=== PATIENT | female | born 1985 | race Two or more races ===

== ENCOUNTER 2019-02-27 10:28 | Emergency (ER) | payer MEDICAID ==
[~2019-02-27] VITALS: Ht 165.1 cm; Wt 99.8 kg
--- NOTE | 2019-02-27 10:50 | PHYS DOC ---
Adult General Chief Complaint Chief Complaint: ABDOMINAL PAIN HPI HPI 33-year-old female presents after fall. The patient was walking down stairs at home yesterday when her foot slipped and she fell onto her left flank. She currently has pain in the left trapezius distribution as well as her left lower ribs. She just wants to make sure she doesn't have a serious injury. She was not knocked unconscious did not hit her head. He is able to ambulate without difficulty. She denies numbness or tingling. Review of Systems Review of Systems Constitutional: Denies fever or chills [] Eyes: Denies change in visual acuity, redness, or eye pain [] HENT: Denies nasal congestion or sore throat [] Respiratory: Denies cough or shortness of breath [] Cardiovascular: No additional information not addressed in HPI [] GI: Denies abdominal pain, nausea, vomiting, bloody stools or diarrhea [] : Denies dysuria or hematuria [] Musculoskeletal: Left rib pain, upper thoracic pain[] Integument: Denies rash or skin lesions [] Neurologic: Denies headache, focal weakness or sensory changes [] Endocrine: Denies polyuria or polydipsia [] All other systems were reviewed and found to be within normal limits, except as documented in this note. Allergies Allergies Allergies Coded Allergies Type Severity Reaction Last Updated Verified No Known Drug Allergies 02/27/19 No Physical Exam Physical Exam Constitutional: Well developed, well nourished, no acute distress, non-toxic appearance. [] HENT: Normocephalic, atraumatic, bilateral external ears normal, oropharynx moist, no oral exudates, nose normal. [] Eyes: PERRLA, EOMI, conjunctiva normal, no discharge. [] Neck: Normal range of motion, no tenderness, supple, no stridor. [] Cardiovascular:Heart rate regular rhythm, no murmur [] Lungs & Thorax: Bilateral breath sounds clear to auscultation. Bruising over left lower ribs, tenderness in the same location [] Abdomen: Bowel sounds normal, soft, no tenderness, no masses, no pulsatile masses. [] Skin: Warm, dry, no erythema, no rash. [] Back: Tenderness over the left trapezius distribution, no obvious deformity, no bony point tenderness[] Extremities: No tenderness, no cyanosis, no clubbing, ROM intact, no edema. [] Neurologic: Alert and oriented X 3, normal motor function, normal sensory function, no focal deficits noted. [] Psychologic: Affect normal, judgement normal, mood normal. [] EKG EKG [] Radiology/Procedures Radiology/Procedures [] Impressions: RIBS LEFT AND PA CHEST History: Fall, left rib pain and bruising Comparison: None. Findings: Single view of the chest and 3 additional views of the left ribs are submitted. There is no pneumothorax, pleural fluid, lobar infiltrate. Heart size is within normal limits. There is likely a nondisplaced left anterolateral sixth rib fracture. Impression: 1. There is likely nondisplaced left anterolateral sixth rib fracture. There is no pneumothorax or pleural fluid. Electronically signed by: Alina Ruelas MD (02/27/2019 11:09 AM) [facility] DICTATED AND SIGNED BY: ALINA RUELAS MD DATE: 02/27/19 1109 CC: ESTHER HURD DO; PCP,NO ~ Course & Med Decision Making Course & Med Decision Making Pertinent Labs and Imaging studies reviewed. (See chart for details) [] Dragon Disclaimer Dragon Disclaimer This electronic medical record was generated, in whole or in part, using a voice recognition dictation system. Departure Departure: Impression: Primary Impression: Closed rib fracture Disposition: 01 HOME, SELF-CARE Condition: STABLE Referrals: PCP,NO (PCP) Patient Instructions: Rib Fracture, [id number] Scripts Hydrocodone Bit/Acetaminophen (NORCO 5-325 TABLET) 1 Each Tablet 1 TAB PO PRN Q6HRS PRN for PAIN, #14 TAB 0 Refills Prov: ESTHER HURD DO 02/27/19 Problem Qualifiers Primary Impression: Closed rib fracture Encounter type: initial encounter Rib fracture type: single rib Laterality: left Qualified Codes: S22.32XA - Fracture of one rib, left side, initial encounter for closed fracture ESTHER HURD DO February 27, 2019 10:50
--- NOTE | 2019-02-27 11:13 | RAD ---
RIBS LEFT AND PA CHEST History: Fall, left rib pain and bruising Comparison: None. Findings: Single view of the chest and 3 additional views of the left ribs are submitted. There is no pneumothorax, pleural fluid, lobar infiltrate. Heart size is within normal limits. There is likely a nondisplaced left anterolateral sixth rib fracture. Impression: 1. There is likely nondisplaced left anterolateral sixth rib fracture. There is no pneumothorax or pleural fluid. Electronically signed by: Chase Henderson MD (02/27/2019 11:09 AM) [id number]
[2019-02-27] MEDS ORDERED: HYDR-3165 PO (11:24)
[2019-02-27 11:37] VITALS: BP 118/70
== END 2019-02-27 11:35 | disposition home or self-care (01) ==
LOC: ER 10:28
DX: S22.32XA Fracture of one rib, left side, initial encounter for closed fracture (principal); M54.6 Pain in thoracic spine; W10.8XXA Fall (on) (from) other stairs and steps, initial encounter; Y93.01 Activity, walking, marching and hiking; Y92.098 Other place in other non-institutional residence as the place of occurrence of the external cause; Y99.8 Other external cause status
CPT/HCPCS: 71101; 99284